=== PATIENT | male | born 1935 | race Caucasian/White ===

== ENCOUNTER → 2019-08-15 | Outpatient (CLI) | payer MEDICARE ==
[~2019-08-15] MED LIST: ASPI-496 PO; GABAPENT PO; METO-264 PO; NAPR220C2 PO; TAMS-11 PO
[2019-08-15 10:34] LABS: BASOPHILS # (AUTO) 0.06 x10^3/uL (0-0.1); BASOPHILS % (AUTO) 1 % (0-1); EOSINOPHILS # (AUTO) 0.19 x10^3/uL (0-0.4); EOSINOPHILS % (AUTO) 3 % (1-7); LYMPHOCYTES # (AUTO) 0.83 x10^3/uL (1-3.4); LYMPHOCYTES % (AUTO) 13 % (22-44); MD NO; MEAN CORPUSCULAR HEMOGLOBIN 30.5 pg (27.5-34.5); MEAN CORPUSCULAR HGB CONC 32.7 g/dL (33.2-36.2); MEAN CORPUSCULAR VOLUME 93.3 fL (81-97); MEAN PLATELET VOLUME 8.9 fL (7.4-10.4); MONOCYTES # (AUTO) 0.43 x10^3/uL (0.2-0.8); MONOCYTES % (AUTO) 7 % (2-9); NEUTROPHILS % (AUTO) 77 % (42-75); PLATELET COUNT 163 x10^3/uL (130-400); RED BLOOD COUNT 4.74 x10^6/uL (4.38-5.82); RED CELL DISTRIBUTION WIDTH 13.3 % (9.4-14.8)
[2019-08-15 10:51] LABS: ALANINE AMINOTRANSFERASE 20 U/L (12-78); ALKALINE PHOSPHATASE 71 U/L (45-117); BILIRUBIN,TOTAL 0.6 mg/dL (0.2-1.0); TOTAL PROTEIN 7.3 g/dL (6.4-8.2)
[2019-08-15 10:55] LABS: INTERNATIONAL NORMALIZED RATIO 0.99 (0.93-1.1); PROTHROMBIN TIME 10.5 Seconds (9.6-11.5)
[2019-08-15 10:59] LABS: ANION GAP 6 mmol/L (5-15); CHLORIDE 107 mmol/L (98-107)
[2019-08-15 16:40] LABS: ALBUMIN 3.9 g/dL (3.4-5.0); CALCIUM 8.9 mg/dL (8.5-10.1)
== END | disposition home or self-care (01) ==
LOC: STAR 09:16
PROVIDERS: ATTEND Orthopaedic Surgery
DX: Z01.818 Encounter for other preprocedural examination (principal); T84.52XA Infection and inflammatory reaction due to internal left hip prosthesis, initial encounter; T84.84XA Pain due to internal orthopedic prosthetic devices, implants and grafts, initial encounter; Z96.642 Presence of left artificial hip joint; R00.1 Bradycardia, unspecified
CPT/HCPCS: 36415; 80053; 83036; 85025; 85610; 85730; 87081; 93005

== ENCOUNTER 2019-08-28 13:09 | Emergency (ER) | payer MEDICARE ==
[~2019-08-28] VITALS: Ht 188 cm; Wt 111.5 kg
[~2019-08-28 13:09] MED LIST changes: +MELO7.5T5 PO; +OXYC5CAP2 PO; +TRAM50TA2 PO
--- NOTE | 2019-08-28 13:24 | NUR ---
PT WAS IN SHOWER W/ LT LEG ON STOOL, DRIED LEG, LOWERED LEG AND HEARD A POP, UNABLE TO WALK OUT OF SHOWER. RECENT LEFT HIP REVISION. VACCUM DRESSING ON LT HIP.
[2019-08-28] MEDS ORDERED: SODIUM CHLORIDE FLUSH 10ML SYR IVF ONE (13:30)
[2019-08-28] MEDS ORDERED: METO25TA4 PO (13:32)
[2019-08-28] MEDS ORDERED: MELO7.5T31 PO (13:32)
[2019-08-28] MEDS ORDERED: GABA600T7 PO (13:32)
--- NOTE | 2019-08-28 13:34 | NUR ---
TO XR PER MARYLOU.
[2019-08-28] MEDS ORDERED: PROPOFOL 10 MG/ML, 20ML ONE (14:11)
--- NOTE | 2019-08-28 14:19 | NUR ---
PT PREPPED FOR PROCEDURAL SEDATION
--- NOTE | 2019-08-28 14:24 | NUR ---
PROCEDURE EXPLAINED TO PT PER DR CRAIG; PT SIGNED CONSENT FOR PROCEDURE. SEE PROCEDURAL SEDATION DOCUMENT FOR FURTHER INFORMATION.
--- NOTE | 2019-08-28 14:53 | NUR ---
KESHIA PAGED AT THIS TIME FOR MD CRAIG.
[2019-08-28] MEDS ORDERED: PROPOFOL 10 MG/ML, 20ML IVPush ONE (15:00)
--- NOTE | 2019-08-28 15:35 | NUR ---
TO XR PER MARYLOU
[2019-08-28 16:23] VITALS: BP 137/76
--- NOTE | 2019-08-28 16:24 | NUR ---
PT RESTING COMFORTABLY ON GURNEY, MONITORING CONTINUES. PT A&OX4, RESP EVEN & UNLABORED, SPEECH CLEAR, DENIES PAIN. SPOUSE IN ROOM.
== END 2019-08-28 17:12 | disposition home or self-care (01) ==
LOC: ED 13:48
DX: S73.035A Other anterior dislocation of left hip, initial encounter (principal); X58.XXXA Exposure to other specified factors, initial encounter; Y93.89 Activity, other specified; Y92.89 Other specified places as the place of occurrence of the external cause; Y99.8 Other external cause status
CPT/HCPCS: 27250; 73502; 99285; J2704

== ENCOUNTER 2019-09-14 14:58 | Emergency (ER) | payer MEDICARE ==
[~2019-09-14] VITALS: Ht 188 cm; Wt 112.2 kg
[~2019-09-14 14:58] MED LIST changes: +GABA600T7 PO; +MELO7.5T31 PO; +METO25TA4 PO
[2019-09-14] MEDS ORDERED: PROPOFOL 10 MG/ML, 20ML ONE (16:15)
[2019-09-14] MEDS ORDERED: PROPOFOL 10 MG/ML, 20ML IVPush ONE (16:30)
--- NOTE | 2019-09-14 16:45 | NUR ---
PT SET UP FOR PROCEDURAL SEDATION FOR CLOSED LEFT HIP REDUCTION. ROOM SET UP, CONSENT SIGNED, INFORMED PT OF PROCEDURE. SEE SEDATION SHEET FOR VITALS. PT TOLERATED WELL. PT A&OX4. PT RESTING COMFORTABLY. NADN.
--- NOTE | 2019-09-14 16:55 | NUR ---
REPEAT XRAY COMPLETE.
--- NOTE | 2019-09-14 17:07 | NUR ---
ALL RESULTS ARE BACK AT THIS TIME. CHART UP FOR RECHECK.
[2019-09-14 17:52] VITALS: BP 132/69
== END 2019-09-14 17:54 | disposition home or self-care (01) ==
LOC: ED 15:52
DX: S73.015A Posterior dislocation of left hip, initial encounter (principal); T84.021A Dislocation of internal left hip prosthesis, initial encounter; W19.XXXA Unspecified fall, initial encounter; Y93.89 Activity, other specified; Y92.098 Other place in other non-institutional residence as the place of occurrence of the external cause; Y99.8 Other external cause status
CPT/HCPCS: 27265; 73501; 73502; 99285; J2704